=== PATIENT | female | born 1950 | race African-American/Black ===

== ENCOUNTER 2017-04-03 23:47 | Emergency (ER) | payer OTHER ==
[~2017-04-03] VITALS: Ht 172.7 cm; Wt 117.9 kg
[2017-04-04 00:05] VITALS: BP 153/97
--- NOTE | 2017-04-04 00:12 | Emergency Room Report ---
History of Present Illness General Chief Complaint: Edema Source: Patient Present Illness HPI This is a 66-year-old female with history of high blood pressure. She presents with left leg swelling for the last 3 days. Usually worse at night. No pain. No shortness of breath. No fever or chills. She came in because she was concerned that her veins are popping out in her foot. No trauma. No other complaint. Allergies: Coded Allergies: No Known Allergies (Verified Allergy, Unknown, 06/27/09) Patient History Past Medical History: see triage record, old chart reviewed Past Surgical History: other Pertinent Family History: none Social History: Reports: smoking Now: No Immunizations: other Reviewed Nursing Documentation: PMH: Agreed, PSxH: Agreed Nursing Documentation-PMH Hx Hypertension: Yes Hx Diabetes: Yes Review of Systems Eye: Denies: eye pain, blurred vision ENT: Denies: ear pain, nose congestion, throat swelling Respiratory: Denies: cough, shortness of breath Cardiovascular: Denies: chest pain, palpitations Gastrointestinal: Denies: abdominal pain, diarrhea, nausea, vomiting Musculoskeletal: Denies: back pain, joint pain Skin: Denies: rash Neurological: Denies: headache, numbness Endocrine: Denies: increased thirst, increased urine Hematologic/Lymphatic: Denies: easy bruising All Other Systems: negative except mentioned in HPI Physical Exam Vital Signs Date Time Temp Pulse Resp B/P (MAP) Pulse Ox O2 Delivery O2 Flow Rate FiO2 04/03/17 23:57 98.4 96 18 153/97 95 Room Air 98.4 vitals normal Sp02 EP Interpretation: reviewed, normal General Appearance: well appearing, no apparent distress, alert Head: normocephalic, atraumatic Eyes: bilateral eye PERRL, bilateral eye EOMI ENT: hearing grossly normal, normal pharynx Neck: full range of motion, supple, no meningismus Respiratory: chest non-tender, lungs clear, normal breath sounds Cardiovascular #1: regular rate, rhythm, no murmur Gastrointestinal: normal bowel sounds, non tender, no mass, no organomegaly, no bruit, non-distended Musculoskeletal: back normal, gait/station normal, normal range of motion, other - Left lower extremity: There is a 1 cm difference in the calf circumference compared to the right. Minimal tenderness with palpation. No pitting edema. Pulses normal. Sensation normal. Psychiatric: mood/affect normal Skin: warm/dry Medical Decision Making Diagnostic Impression: Primary Impression: Mild peripheral edema ER Course This patient with mild peripheral edema. No DVT or infection. No fracture dislocation. We'll discharge home. CT/MRI/US Diagnostic Results CT/MRI/US Diagnostic Results : Imaging Test Ordered: Ultrasound left leg Impression negative per tensile tester Last Vital Signs Date Time Temp Pulse Resp B/P (MAP) Pulse Ox O2 Delivery O2 Flow Rate FiO2 04/04/17 00:05 96 18 Room Air 04/03/17 23:57 98.4 153/97 95 98.4 Status: improved Disposition: HOME, SELF-CARE Condition: Stable Patient Instructions: Peripheral Edema Additional Instructions: Followup with your Dr. in 7 days. Return if worse. RIGOBERTO MUNIZ M.D. Apr 04, 2017 00:11
[2017-04-04 01:05] VITALS: BP 153/97
--- NOTE | 2017-04-05 13:01 | Diagnostic Imaging Report ---
APPROVED REPORT CPT Code: 60549 Present Symptoms Lower Extremity Pain: Left LEFT LEG: Venous imaging reveals a patent deep venous system. There is no evidence of thrombus within the femoral, popliteal or tibial segments. The greater saphenous vein is also within normal limits. Doppler indicates normal spontaneous flow within these segments.
== END 2017-04-04 01:05 | disposition home or self-care (01) ==
LOC: EMR 04-04 00:16
DX: R60.0 Localized edema (principal); I10 Essential (primary) hypertension; E11.9 Type 2 diabetes mellitus without complications
CPT/HCPCS: 93971; 99284

== ENCOUNTER 2018-11-11 02:36 | Emergency (ER) | payer OTHER ==
[~2018-11-11] VITALS: Ht 170.2 cm; Wt 113.4 kg
[~2018-11-11 02:36] MED LIST: ACCU-CHEK1 EAC5 MC; ATORVASTATIN CA20 MG ORAL; BLOOD LANCETS1 EACH MC; GLYBURIDE2.5 MG PO; METFORMIN HCL1000 M1 ORAL; PRILOSEC OTC20 MG ORAL
[2018-11-11] MEDS ORDERED: POTASSIUM CHLO10 ME3 ORAL (02:46)
[2018-11-11 02:48] VITALS: BP 148/96
--- NOTE | 2018-11-11 02:50 | NUR ---
ED Nurse Note: pt walked in to ED C/O vaginal spotting ( bright red, scant) since 11/07/09. denies any pain. VSS. alert x4
--- NOTE | 2018-11-11 03:03 | Emergency Room Report ---
History of Present Illness General Chief Complaint: Female Urogenital Problems Source: Patient Present Illness [facility] Disclaimer: Please note that this report is being documented using DRAGON technology. This can lead to erroneous entry secondary to incorrect interpretation by the dictating instrument. HPI: 60-year-old female with a history of hypertension, hyperlipidemia, diabetes presents for evaluation of vaginal spotting. Symptoms have been present for approximately 4 days. She noted some spotting on the tissue paper after using the restroom. She noted some dark discolored urine over the past few days but denied any dysuria, hematuria, flank pain, abdominal pain, nausea, vomiting, fevers. States she had a similar presentation several years ago after which she was diagnosed with urinary tract infection. She already followed up with her PMD who recommended follow-up with her guidance and control system engineer who she has not seen in approximately 8 years. She is postmenopausal. Denies brandon vaginal bleeding or vaginal discharge. PMH: Hypertension, hyperlipidemia, diabetes PSH: See chart Allergies: None reported Social Hx: Denies drug or alcohol abuse Allergies: Coded Allergies: No Known Allergies (Verified Allergy, Unknown, 06/27/09) Nursing Documentation-PMH Past Medical History: No History, Except For Hx Hypertension: Yes Hx Diabetes: Yes Review of Systems All Other Systems: negative except mentioned in HPI Physical Exam Vital Signs Date Time Temp Pulse Resp B/P (MAP) Pulse Ox O2 Delivery O2 Flow Rate FiO2 11/11/18 02:39 98.1 74 16 152/96 (114) 95 Room Air General: Awake and alert, no acute distress HEENT: NC/AT. EOMI. Resp: Normal work of breathing Abd: Obese abdomen. Soft, nontender, nondistended. No masses appreciated. Skin: Intact. No abrasions, laceration or rash over the exposed skin. MSK: Normal tone and bulk. Moving all extremities. No obvious deformity. No CVA tenderness. Neuro: Awake and alert. Mentating appropriately Medical Decision Making Diagnostic Impression: Primary Impression: Vaginal bleeding Additional Impression: Hematuria ER Course Well-appearing 68-year-old female presented for evaluation of intermittent vaginal spotting over the past few days. She is overall well-appearing with stable vital signs. Will screen for UTI and otherwise allow the patient to follow-up with ASPHALT SPREADER OPERATOR at her already scheduled appointment in 1 week. Laboratory Tests Test 11/11/18 03:05 Urine Color Yellow Urine Appearance Clear Urine pH 5 (4.5-8.0) Urine Specific [place] 1.020 (1.005-1.035) Urine Protein Negative (NEGATIVE) Urine Glucose (UA) 2+ (NEGATIVE) H Urine Ketones Negative (NEGATIVE) Urine Blood 4+ (NEGATIVE) H Urine Nitrite Negative (NEGATIVE) Urine Bilirubin Negative (NEGATIVE) Urine Urobilinogen 1 MG/DL (0.0-1.0) H Urine Leukocyte Esterase Negative (NEGATIVE) Urine RBC 5-10 /HPF (0 - 2) H Urine WBC 0-2 /HPF (0 - 2) Urine Squamous Epithelial Cells Few /LPF (NONE/OCC) Urine Bacteria Occasional /HPF (NONE) Last Vital Signs Date Time Temp Pulse Resp B/P (MAP) Pulse Ox O2 Delivery O2 Flow Rate FiO2 11/11/18 02:48 98.1 84 17 148/96 96 Room Air Reevaluation Impression Urine does not appear infectious. Patient does have red cells present consistent with her history. Other reasons for vaginal spotting in a postmenopausal female are extensive and require follow-up with ASPHALT SPREADER OPERATOR first at her already scheduled appointment for this coming Monday but also I recommended a follow-up with urology. I discussed that this may be a structural bleed, irritation, possible malignancy, mass, fibroids or any another other pathologic conditions ranging from benign to serious. She understands the need for close follow-up and will keep her appointment for this coming Monday. We also discussed returning to the emergency department if she had any worsening of her symptoms or develop any new sudden severe symptoms. She understands and agrees this treatment plan was discharged home. Disposition: HOME, SELF-CARE Condition: Stable Alex Carrasco MD Nov 11, 2018 03:03
--- NOTE | 2018-11-11 03:09 | NUR ---
ED Nurse Note: urine sample sent down to lab
[2018-11-11 03:26] LABS: APPEARANCE,URINE CLEAR; BILIRUBIN, URINE NEGATIVE (NEGATIVE); GLUCOSE, URINE (UA) 2+ (NEGATIVE); KETONES,URINE NEGATIVE (NEGATIVE); LEUKOCYTE ESTERASE ,URINE NEGATIVE (NEGATIVE); NITRITE,URINE NEGATIVE (NEGATIVE); PH,URINE 5 (4.5-8.0); PROTEIN,URINE NEGATIVE (NEGATIVE); UROBILINOGEN,URINE 1 MG/DL (0.0-1.0)
[2018-11-11 03:31] LABS: COLOR,URINE YELLOW
[2018-11-11 03:58] VITALS: BP 139/90
--- NOTE | 2018-11-11 03:58 | NUR ---
ER DISCHARGE NOTE: Patient is cleared to be discharged per ERMD, pt is aox4, on room air, with stable vital signs. pt was given dc instructions, pt was able to verbalize understanding, pt id band removed without complications. pt is able to ambulate with steady gait. pt took all belongings.
== END 2018-11-11 03:58 | disposition home or self-care (01) ==
LOC: EMR 03:10
DX: N93.9 Abnormal uterine and vaginal bleeding, unspecified (principal); R31.9 Hematuria, unspecified; I10 Essential (primary) hypertension; E11.9 Type 2 diabetes mellitus without complications; E78.5 Hyperlipidemia, unspecified
CPT/HCPCS: 81001; 99283

== ENCOUNTER 2019-12-12 23:42 | Emergency (ER) | payer OTHER ==
[~2019-12-12] VITALS: Ht 170.2 cm; Wt 108.9 kg
[~2019-12-12 23:42] MED LIST changes: +POTASSIUM CHLO10 ME3 ORAL
[2019-12-13 00:15] VITALS: BP 161/87
--- NOTE | 2019-12-13 00:43 | Emergency Room Report ---
History of Present Illness General Chief Complaint: Abnormal Labs Source: Patient Present Illness HPI 69-year-old female with medical history of fah-ricruve-paakistdn diabetes (on metformin, trulicity, invokana), HTN, HLD presents to the ER with complaint of hyperglycemia after eating [employer]. She states that her Accu-Chek prior to arrival was 376 which caused her to feel dizzy. The patient's symptoms were gradual onset, severity was moderate, duration since 1 day. Denies headache, vision changes, slurred speech, visual blurring, weakness, vomiting, diarrhea, chest pain, shortness of breath Quality: Denies pain Past medical history: Diabetes, dyslipidemia Past surgical history: Denies Smoking: Denies Alcohol use: Denies Drug use: Denies Review of systems: CONST: No fevers or chills, No night sweats PULMONARY: No productive cough, No shortness of breath CARDIAC: No chest pain, No palpitations GI: No vomiting, No diarrhea , No melena_or_BRBPR : No dysuria, No hematuria, No discharge NEURO: No new_focal_weakness_or_numbness, No confusion, No vision changes 14 point Review of Systems is otherwise negative except per HPI Physical Exam: GENERAL: Awake_alert_ nontoxic, no acute distress Spo2 99% on RA -normal EYES: Extraocular muscles are intact. Conjunctivae clear. Lids without swelling ENT: External nose and ear normal_in_appearance. Oropharynx clear. Head_atraumatic, Moist_oral_mucosa NECK: No JVD. No meningismus. No thyromegaly. Supple. Trachea midline RESP: Normal respiratory effort. Symmetric rise. No stridor. Clear_ to_auscultation_No_rales_No_wheezes CARDIAC: Regular rate and regular rhytm. No_significant pedal edema. ABDOMEN: Soft. Nondistended. Nontender_No_rebound_or_guarding. MSK: Normal muscle tone, without rigidity. Extremities without asymmetric deformity or swelling. SKIN: Warm and dry. No visible cyanosis or pallor NEUROLOGIC: Alert, oriented x3. Motor_and_sensation_grossly_intact. No truncal ataxia. Gait_normal Psych: Normal mood and affect, normal judgment and insight - COORDINATION OF CARE Case was discussed with: Patient Any labs and imaging that were ordered were interpreted as part of the medical decision making: Medical Decision Making/Plan: Differential diagnosis: Hyperglycemia secondary to diet noncompliance with med ication noncompliance, rule out DKA versus HHS Patient's exam shows she is neurologically intact. Normal examination is benign . Nontender. No abnormal cerebellar signs. Laboratory evaluation shows mild hyperglycemia with Accu-Chek 327. Creatinine is stable at baseline, consistent with her CKD. No acidosis. No DKA or HHS. EKG shows no signs of malignant arrhythmia such as Brugada syndrome, delta wave, epsilon wave, significant heart block, or QTc >500. Troponin is negativex1. Labs show no there severe electrolyte derangement such as severe hyponatremia, hypokalemia, acidosis, or hypoglycemia. The patient denies any external blood loss and has no significant pallor or evidence of acute anemia as a cause of their symptoms. Hemoglobin is not severely low, and acute blood transfusion is not indicated. In addition, the patient has no loud murmur or evidence of significant obst ructive heart disease, symptoms are not in the setting of exertion. The patient is neurologically intact, with normal cerebellar exam, without any evidence of central vertigo as a cause of their symptoms. They appear well hydrated without any evidence of severe dehydration or acute hypovolemia. Intervention included IV fluids. Accu-Chek down trended to 261. Symptoms resolved with fluid hydration. Patient was counseled not to break her diet for diabetes and to avoid candies and sweets to avoid spikes in her blood glucose levels. She has a primary care doctor which she can follow-up with for further management of her diabetes. Pertinent results reviewed with the patient. I educated the patient on the current treatment plan including the risks, benefits, and alternatives. I also discussed the extent and limitations of the current evaluation. The patient expressed understanding and agreement with plan. I recommended PMD follow-up within 1-2 days. Also advised that the patient return to the Emergency Depa rtment as soon as possible if they experience any new, persistent, or worsening symptoms. Allergies: Coded Allergies: No Known Allergies (Verified Allergy, Unknown, 06/27/09) COVID-19 Screening Contact w/high risk pt: No Experienced COVID-19 symptoms?: No COVID-19 Testing performed HOT BILLET SHEAR OPERATOR: No Patient History Last Menstrual Period: UNK Now: No : 2 Para: 2 Nursing Documentation-PMH Hx Hypertension: Yes Hx Diabetes: Yes Physical Exam Vital Signs Date Time Temp Pulse Resp B/P (MAP) Pulse Ox O2 Delivery O2 Flow Rate FiO2 12/12/19 23:52 98.1 96 16 161/87 (111) 98 Room Air Sp02 EP Interpretation: reviewed, normal Medical Decision Making Diagnostic Impression: Primary Impression: Hyperglycemia Additional Impressions: Diabetes CKD (chronic kidney disease) EKG Diagnostic Results Troponin ordered: Yes When was troponin ordered?: Dec 13, 2019 EKG Time: 00:53 EP Interpretation: nl Rate: normal Rhythm: NSR ST Segments: no acute changes PA Scribe Text 12-lead EKG (interpreted by me) Time: 31 Indication: Rhythm analysis Tracing visualized and Interpreted by me. Rhythm: Normal sinus rhythm Rate: 87 bpm QTc: 478 Morphology: No_significant_ST_elevations_or_depressions, No STEMI Impression: Normal_sinus_rhythm_without_significant_abnormality. T wave inversion in lead III Rhythm Strip Diag. Results Rhythm Strip Time: 00:43 EP Interpretation: yes Rate: 80 Rhythm: NSR, no PVC's, no ectopy Reevaluation Time: 01:00 Last Vital Signs Date Time Temp Pulse Resp B/P (MAP) Pulse Ox O2 Delivery O2 Flow Rate FiO2 12/13/19 00:15 98.1 86 16 161/87 98 Room Air Status: improved Disposition: HOME, SELF-CARE Admit Decision Time: 02:00 Condition: Stable Referrals: NOT CHOSEN IPA/MD,REFERRING (PCP) Patient Instructions: Diabetes Mellitus and Food Additional Instructions: Instructions for patient/guide excursion: Follow up with your physician in 1-2 days. Please follow your recommended diet for diabetes to avoid hyperglycemia Follow-up with your doctor sooner if your condition requires a more timely clinical reevaluation. Return to the emergency department immediately if you feel that your condition is worsening or if you have any new or concerning symptoms. Review your discharge instructions and take any prescriptions given as instructed. [facility] PROVIDES FREE OR LOW-COST HEALTH SERVICES TO PEOPLE WHO CAN SHOW PROOF THAT THEY LIVE IN [facility]. TO FIND MORE CLINICS PARTNERED WITH THE [facility] TO PROVIDE SERVICE, PLEASE CALL . Tessie Chamberlain D.O. Dec 13, 2019 00:43
[2019-12-13 00:46] LABS: APPEARANCE,URINE CLEAR; BILIRUBIN, URINE NEGATIVE (NEGATIVE); COLOR,URINE PALE YELLOW; GLUCOSE, URINE (UA) 4+ (NEGATIVE); KETONES,URINE NEGATIVE (NEGATIVE); LEUKOCYTE ESTERASE ,URINE NEGATIVE (NEGATIVE); NITRITE,URINE NEGATIVE (NEGATIVE); PH,URINE 5 (4.5-8.0); PROTEIN,URINE NEGATIVE (NEGATIVE); UROBILINOGEN,URINE NORMAL MG/DL (0.0-1.0)
[2019-12-13 00:47] LABS: BASOPHILS % (AUTO) 1.2 % (0.0-2.0); EOSINOPHILS % (AUTO) 1.2 % (0.0-3.0); LYMPHOCYTES % (AUTO) 31.9 % (20.0-45.0); MEAN CORPUSCULAR VOLUME 93 FL (80-99); MONOCYTES % (AUTO) 9.8 % (1.0-10.0); NEUTROPHILS % (AUTO) 55.9 % (45.0-75.0); PLATELET COUNT 188 K/UL (150-450); RED BLOOD COUNT 4.96 M/UL (4.20-5.40); RED CELL DISTRIBUTION WIDTH 16.3 % (11.6-14.8); WHITE BLOOD COUNT 6.7 K/UL (4.8-10.8)
[2019-12-13 00:59] LABS: CALCIUM 8.7 MG/DL (8.5-10.1); CREATININE 1.5 MG/DL (0.55-1.30); POTASSIUM 3.6 MMOL/L (3.5-5.1)
[2019-12-13 01:00] VITALS: BP 152/87
[2019-12-13 01:05] LABS: ALBUMIN 4.1 G/DL (3.4-5.0); ALBUMIN/GLOBULIN RATIO 1.3 (1.0-2.7); BILIRUBIN,TOTAL 0.4 MG/DL (0.2-1.0)
[2019-12-13 01:30] VITALS: BP 148/79
--- NOTE | 2019-12-15 14:56 | Cardiology Report ---
APPROVED REPORT EKG Measurement Heart [id number] <Conclusion> Normal sinus rhythm Possible Left atrial enlargement Left ventricular hypertrophy Nonspecific T wave abnormality Abnormal ECG
== END 2019-12-13 01:30 | disposition home or self-care (01) ==
LOC: EMR 12-13 00:24
DX: E11.65 Type 2 diabetes mellitus with hyperglycemia (principal); E11.22 Type 2 diabetes mellitus with diabetic chronic kidney disease; I12.9 Hypertensive chronic kidney disease with stage 1 through stage 4 chronic kidney disease, or unspecified chronic kidney disease; N18.9 Chronic kidney disease, unspecified; Z79.4 Long term (current) use of insulin; E78.5 Hyperlipidemia, unspecified
CPT/HCPCS: 36415; 80053; 81003; 82010; 82803; 83690; 84484; 85025; 93005; 96360; 99284